=== PATIENT | male | born 1940 | race Caucasian/White ===

== ENCOUNTER 2018-09-29 18:21 | Emergency (ER) | payer MEDICARE, OTHER ==
[~2018-09-29] VITALS: Ht 170.2 cm; Wt 90.9 kg
[2018-09-29 18:26] VITALS: Ht 170.2 cm; Wt 90.9 kg
[2018-09-29] MEDS ORDERED: HTN MEDS (18:27)
[2018-09-29] MEDS ORDERED: COUMADIN7.5 MG PO (18:27)
[2018-09-29] MEDS ORDERED: ATORVASTATIN (18:28)
[2018-09-29] MEDS ORDERED: AMLODIPINE (18:28)
[2018-09-29] MEDS ORDERED: LISINOPRIL (18:29)
[2018-09-29] MEDS ORDERED: LABETALOL (18:29)
[2018-09-29] MEDS ORDERED: SERTRALINE (18:29)
[2018-09-29] MEDS ORDERED: POTASSIUM (18:30)
[2018-09-29] MEDS ORDERED: VIT B-12 (18:30)
[2018-09-29 19:06] VITALS: BP 133/69
== END 2018-09-29 19:07 | disposition home or self-care (01) ==
LOC: D.ER 18:21
DX: T85.9XXA Unspecified complication of internal prosthetic device, implant and graft, initial encounter (principal); I10 Essential (primary) hypertension; J44.9 Chronic obstructive pulmonary disease, unspecified